=== PATIENT | male | born 1955 | race Caucasian/White ===

== ENCOUNTER 2016-08-23 21:18 | Inpatient (IN) | payer MEDICARE, OTHER ==
[~2016-08-23] VITALS: Ht 167.6 cm; Wt 110.0 kg
[~2016-08-23 21:18] MED LIST: ATEN1TAB73 PO; CEPH500C3 PO; DEPA500T3 PO; LEXA20TA PO; LISI-357 PO; NOVOLOGMXP SQ; NRSS SC; PRAV40TA2 PO; SERO300T2 PO
[2016-08-23 21:23] VITALS: BP 123/73; PULSE 88; RESP 20; O2SAT 98
[2016-08-23 21:31] VITALS: O2SAT 99
--- NOTE | 2016-08-23 22:43 | RADRPT ---
EXAM DATE/TIME: 08/23/2016 21:50 [facility] COMPARISON: No previous studies available for comparison. INDICATIONS : Short of Breath. MEDICAL HISTORY : None. SURGICAL HISTORY : None. ENCOUNTER: Initial ACUITY: 1 day PAIN SCORE: 0/10 LOCATION: Bilateral chest FINDINGS: A single view of the chest demonstrates the lungs to be symmetrically aerated without evidence of mas s, infiltrate or effusion. The cardiomediastinal contours are unremarkable. Osseous structures are intact. CONCLUSION: No evidence of acute cardiopulmonary disease. Des Oviedo MD on August 23, 2016 at 22:41 Board Certified Radiologist. This report was verified electronically.
--- NOTE | 2016-08-23 22:58 | RADRPT ---
EXAM DATE/TIME: 08/23/2016 22:37 [facility] COMPARISON: No previous studies available for comparison. INDICATIONS : Altered mental status. RADIATION DOSE: 56.35 CTDIvol (mGy) MEDICAL HISTORY : Non-responsive. SURGICAL HISTORY : Non-responsive. ENCOUNTER: Initial ACUITY: 1 day PAIN SCALE: Non-responsive LOCATION: cranial TECHNIQUE: Multiple contiguous axial images were obtained of the head. Using automated exposure control and adj ustment of the mA and/or kV according to patient size, radiation dose was kept as low as reasonably a chievable to obtain optimal diagnostic quality images. FINDINGS: CEREBRUM: The ventricles are normal for age. No evidence of midline shift, mass lesion, hemorrhage or acute in farction. No extra-axial fluid collections are seen. POSTERIOR FOSSA: The cerebellum and brainstem are intact. The 4th ventricle is midline. The cerebellopontine angle i s unremarkable. EXTRACRANIAL: There is a 2 cm mucous retention cyst of the right maxillary air cell. SKULL: The calvaria is intact. No evidence of skull fracture. CONCLUSION: No bleed or other acute intracranial abnormality. Right maxillary mucus retention cyst. Des Oviedo MD on August 23, 2016 at 22:54 Board Certified Radiologist. This report was verified electronically.
[2016-08-23 23:01] LABS: AUTOMATED NEUTROPHIL # 10.5 TH/MM3 (1.8-7.7); BASOPHIL # 0.1 TH/MM3 (0-0.2); BASOPHIL % 0.4 % (0.0-2.0); EOSINOPHIL # 0.4 TH/MM3 (0-0.4); EOSINOPHIL % 3.3 % (0.0-4.0); HEMATOCRIT 30.1 % (39.0-51.0); HEMO FLAGS DIFF FINAL; LYMPH % 8.1 % (9.0-44.0); LYMPHOCYTE # 1.1 TH/MM3 (1.0-4.8); MEAN CELL VOLUME 84.9 FL (80.0-100.0); MEAN CORPUSCULAR HEMOGLOBIN 28.6 PG (27.0-34.0); MEAN CORPUSCULAR HGB CONC 33.7 % (32.0-36.0); MONO % 10.4 % (0.0-8.0); NEUT % 77.8 % (16.0-70.0); PLATELET COUNT 255 TH/MM3 (150-450); RED BLOOD COUNT 3.54 MIL/MM3 (4.50-5.90); RED CELL DISTRIBUTION WIDTH 14.3 % (11.6-17.2); WHITE BLOOD COUNT 13.5 TH/MM3 (4.0-11.0)
[2016-08-23 23:12] LABS: ANION GAP 7 MEQ/L (5-15); AST (GOT) 41 U/L (15-37); BICARBONATE 24.8 MEQ/L (21.0-32.0); BLOOD UREA NITROGEN 71 MG/DL (7-18); CHLORIDE 101 MEQ/L (98-107); GLOMERULAR FILTRATION RATE 21 ML/MIN (>89); MAGNESIUM 1.6 MG/DL (1.5-2.5); POTASSIUM 5.5 MEQ/L (3.5-5.1); SODIUM (NA) 133 MEQ/L (136-145)
[2016-08-23 23:17] LABS: ALKALINE PHOSPHATASE 137 U/L (45-117); ALT (GPT) 88 U/L (12-78); TOTAL BILIRUBIN ADULT 0.3 MG/DL (0.2-1.0)
[2016-08-23] MEDS ORDERED: DEPA500T3 PO (23:26)
[2016-08-23] MEDS ORDERED: NOVOLOGMXP SQ (23:26)
[2016-08-23] MEDS ORDERED: PRAV40TA2 PO (23:26)
[2016-08-23] MEDS ORDERED: LISI-519 PO (23:26)
[2016-08-23] MEDS ORDERED: SERO300T PO (23:26)
[2016-08-23] MEDS ORDERED: ATEN1TAB73 PO (23:26)
[2016-08-23] MEDS ORDERED: NOVORP2 SQ (23:26)
[2016-08-23] MEDS ORDERED: LEXA20TA PO (23:26)
[2016-08-24] VITALS (9 sets, daily range): BP systolic 95–177; BP diastolic 52–100; PULSE 82–108; RESP 14–20; TEMP 96.3–98.8; O2SAT 93–99
[2016-08-24] MEDS ORDERED: SODIUM POLYSTYRENE SULFONATE 30 GM/120 ML ENEMA RECTAL ONE (00:30)
[2016-08-24] MEDS ORDERED: CALCIUM GLUCONATE 10% 1 GM/10 ML VIAL SLOW IVP ONE (00:30)
[2016-08-24] MEDS ORDERED: SODIUM CHLOR 0.9% 1000 ML INJ 1,000 ML IV ONE ×2 (00:30→00:45)
[2016-08-24] MEDS ORDERED: SODIUM POLYSTYRENE SULFONATE SUSP 15 GM/60 ML CUP PO ONE ×2 (00:30→18:45)
--- NOTE | 2016-08-24 00:38 | PD ---
HPI Chief Complaint: Fall Time Seen by Provider: 21:28 Travel History International Travel<30 days: No Contact w/Intl Traveler<30days: No Traveled to known affect area: No History of Present Illness HPI 61-year-old male came to the emergency room with history of fall and altered mental status. The fall was witnessed by a neighbor when he fell from his motorized chair. They told the paramedics that he just slumped over from the chair and fell on the ground. He appeared lethargic. As per EMS en route patient continued to be a little lethargic but mental status improved however. His blood sugar was 190 as per the core worker. Patient seemed a little lethargic upon arrival but answering questions appropriately. He is fully oriented. He was complaining of left thigh pain but also said that he has had this pain for a very long time. No history of chest pain or head injury. Patient also said that he took a Seroquel which is his prescription medication just before this happened. Patient is a diabetic. [facility] Past Medical History Narrative Medical List of his past medical history as reviewed from the nursing note. Bipolar Disorder: Yes Anxiety: No Depression: Yes High Cholesterol: Yes Coronary Artery Disease: Yes Diabetes: Yes Patient Takes Glucophage: Yes Diminished Hearing: No Hypertension: Yes Psychiatric: Yes Reproductive: Yes (ENLARGED PROSTATE) ?: Not Past Surgical History Eye Surgery: Yes (Tightened muscles on eye) Oral Surgery: Yes (teeth extracted) Other Surgery: Yes (4 yrs old hernia) Social History Alcohol Use: No Tobacco Use: Yes (2PPD) Substance Use: No Allergies-Medications (Allergen,Severity, Reaction): Coded Allergies: [place] (Verified Allergy, Severe, 08/23/16) Per patient, he is unable to ever take [place] ever again. Makes him very very ill. Comments List of his allergies reviewed from the nursing note. Reported Meds & Prescriptions Reported Meds & Active Scripts Active Reported Vesicare (Solifenacin) 5 Mg Tab 5 Mg PO DAILY Simvastatin 20 Mg Tab 20 Mg PO HS Seroquel (Quetiapine Fumarate) 300 Mg Tab 300 Mg PO HS Lisinopril 2.5 Mg Tab 2.5 Mg PO DAILY Levemir Inj (Insulin Detemir) 1,000 unit/ 10 ML Vial 12 Units SQ BID Do not mix with any other Insulin. Lamictal (Lamotrigine) 25 Mg Tab 25 Mg PO BID Doxazosin (Doxazosin Mesylate) 2 Mg Tab 2 Mg PO DAILY Vitamin D3 (Cholecalciferol) 2,000 Unit Chew 2,000 Units CHEW DAILY Aspirin 81 Mg Chew 81 Mg CHEW DAILY [place] Allergy (Fexofenadine HCl) 180 Mg Tab 180 Mg PO DAILY Actos (Pioglitazone HCl) 15 Mg Tab 15 Mg PO DAILY Novolog Mix 70-30 Inj (Insulin Aspart Prota 70%/Aspart 30%) 1,000 Unit/10 Ml Vial 1 Units SQ Novolin R Inj (Insulin Human Regular) 1,000 Unit/10 Ml Vial 0 SQ DIRECTED Sliding Scale As Directed. Narrative Medication List of his home medications reviewed from the nursing note. Review of Systems Except as stated in HPI: all other systems reviewed are Neg Physical Exam Narrative GENERAL: Lethargic, obese, looks older than his age, moderate distress, answering questions appropriately SKIN: Warm and dry. HEAD: Atraumatic. Normocephalic. EYES: Pupils equal and round. No scleral icterus. No injection or drainage. ENT: No nasal bleeding or discharge. Dry mucous membrane NECK: Trachea midline. No JVD. CARDIOVASCULAR: Regular rate and rhythm. No murmur appreciated. RESPIRATORY: No accessory muscle use. Clear to auscultation. Breath sounds equal bilaterally. GASTROINTESTINAL: Abdomen soft, non-tender, nondistended. Hepatic and splenic margins not palpable. MUSCULOSKELETAL: No obvious deformities. No clubbing. No cyanosis. No edema. NEUROLOGICAL: Awake and alert. No obvious cranial nerve deficits. Motor grossly within normal limits. Slurred speech. PSYCHIATRIC: Appropriate mood and affect; insight and judgment normal. Data Data Last Documented VS Vital Signs Date Time Temp Pulse Resp B/P Pulse Ox O2 Delivery O2 Flow Rate FiO2 08/24/16 00:59 96 20 128/72 94 Room Air 3 Orders Complete Blood Count With Diff (08/23/16 21:28) Comprehensive Metabolic Panel (08/23/16 21:28) Lactic Acid Sepsis Protocol (08/23/16 21:28) Magnesium (Mg) (08/23/16 21:28) Troponin I (08/23/16 21:28) Urinalysis - C+S If Indicated (08/23/16 21:28) Blood Culture (08/23/16 21:28) Chest, Single Ap (08/23/16 21:28) Blood Glucose (08/23/16 21:28) Ecg Monitoring (08/23/16 21:28) Iv Access Insert/Monitor (08/23/16 21:28) Oximetry (08/23/16 21:28) Oxygen Administration (08/23/16 21:28) Ct Brain W/O Iv Contrast(Rout) (08/23/16 21:28) Electrocardiogram (08/23/16 ) Sodium Chlor 0.9% 1000 Ml Inj (Ns 1000 M (08/24/16 00:30) Creatine Kinase (Cpk) (08/24/16 00:22) Femur (Ap & Lat/2vws) (08/24/16 ) Calcium Gluconate Inj (Calcium Gluconate (08/24/16 00:30) Sodium Polysty Sulfate Liq (Kayexalate L (08/24/16 00:30) Urinary Catheter Insert/Apply (08/24/16 00:27) Sod Polystyrene Sulfate Enema (Kayexalat (08/24/16 00:30) Piperacil-Tazo 4.5 Gm Premix (Zosyn 4.5 (08/24/16 00:45) Vancomycin Inj (Vancomycin Inj) (08/24/16 00:45) Sodium Chlor 0.9% 1000 Ml Inj (Ns 1000 M (08/24/16 00:45) Admit Order (Ed Use Only) (08/24/16 01:07) Labs Laboratory Tests Test 08/23/16 22:35 Sodium Level 133 MEQ/L Potassium Level 5.5 MEQ/L Chloride Level 101 MEQ/L Carbon Dioxide Level 24.8 MEQ/L Anion Gap 7 MEQ/L Blood Urea Nitrogen 71 MG/DL Creatinine 3.08 MG/DL Estimat Glomerular Filtration 21 ML/MIN Rate Random Glucose 201 MG/DL Lactic Acid Level 0.7 mmol/L Calcium Level 8.3 MG/DL Magnesium Level 1.6 MG/DL Total Bilirubin 0.3 MG/DL Aspartate Amino Transf 41 U/L (AST/SGOT) Alanine Aminotransferase 88 U/L (ALT/SGPT) Alkaline Phosphatase 137 U/L Troponin I LESS THAN 0.02 NG/ML Total Protein 6.9 GM/DL Albumin 1.9 GM/DL White Blood Count 13.5 TH/MM3 Red Blood Count 3.54 MIL/MM3 Hemoglobin 10.1 GM/DL Hematocrit 30.1 % Mean Corpuscular Volume 84.9 FL Mean Corpuscular Hemoglobin 28.6 PG Mean Corpuscular Hemoglobin 33.7 % Concent Red Cell Distribution Width 14.3 % Platelet Count 255 TH/MM3 Mean Platelet Volume 7.7 FL Neutrophils (%) (Auto) 77.8 % Lymphocytes (%) (Auto) 8.1 % Monocytes (%) (Auto) 10.4 % Eosinophils (%) (Auto) 3.3 % Basophils (%) (Auto) 0.4 % Neutrophils # (Auto) 10.5 TH/MM3 Lymphocytes # (Auto) 1.1 TH/MM3 Monocytes # (Auto) 1.4 TH/MM3 Eosinophils # (Auto) 0.4 TH/MM3 Basophils # (Auto) 0.1 TH/MM3 CBC Comment DIFF FINAL Differential Comment Total Creatine Kinase 218 U/L MDM Medical Decision Making Medical Screen Exam Complete: Yes Emergency Medical Condition: Yes Medical Record Reviewed: Yes Interpretation(s) Twelve-lead EKG was reviewed by me. Normal sinus rhythm, normal axis, nonspecific ST-T wave changes. Heart rate of 98 bpm. Differential Diagnosis Sepsis, electrolyte abnormalities, intracranial bleed, CVA, UTI Narrative Course 12:34 AM blood test results of back and shows acute renal failure. CAT scan of the head is negative and chest x-ray is within normal limits. I went and reassessed the patient and he is sleeping and stirs a little when I tried to wake him up. I've ordered a Bhatia catheter and a second liter of IV fluid bolus. His potassium was 5.5 which is high especially given the fact that he is in acute renal failure. I have ordered calcium gluconate and Kayexalate enema. Patient will need to be admitted. Awaiting for the hospitalist to call back. UA still pending. I added a CPK. Patient has leukocytosis. I have ordered antibiotics for him for possible sepsis. Patient is rectal temp was 99.9. Critical Care Narrative Aggregate critical care time was 45 minutes. Time to perform other separately billable procedures was not included in the critical care time. My time did not include minutes spent treating any other patients simultaneously or on activities that did not directly contribute to the patient's treatment. The services I provided to this patient were to treat and/or prevent clinically significant deterioration that could result in: Altered mental status, acute renal failure and dehydration, hyperkalemia I provided critical care services requiring my management, as noted below: Chart data review, documentation time, medication orders and management, vital sign assessments/reviewing monitor data, ordering and reviewing lab tests, ordering and interpreting/reviewing x-rays and diagnostic studies, care of the patient and discussion of the patient with the admitting physicians. Procedures EKG Prior to Arrival: No Diagnosis Primary Impression: Altered mental status Qualified Code: R40.0 - Somnolence Additional Impressions: Acute renal failure Qualified Code: N17.9 - Acute renal failure, unspecified acute renal failure type Dehydration Syncope Qualified Code: R55 - Syncope, unspecified syncope type Hyperkalemia Sepsis Admitting Information Admitting Physician Requests: Admit Scripts Amoxicillin-Clavulanate 875-125 mg [id number] Mg PO Q12HR #10 TAB Prov:Yamilet Smart MD 08/26/16 Haydee Stewart MD Aug 24, 2016 00:38
[2016-08-24] MEDS ORDERED: VANCOMYCIN INJ 1,000 MG in SODIUM CHLOR 0.9% 250 ML INJ 250 ML IV ONE (00:45)
[2016-08-24] MEDS ORDERED: PIPERACIL-TAZO 4.5 GM PREMIX 100 ML IV ONE (00:45)
--- NOTE | 2016-08-24 01:21 | RADRPT ---
EXAM DATE/TIME: 08/24/2016 00:44 [facility] COMPARISON: No previous studies available for comparison. INDICATIONS : Left upper leg pain. MEDICAL HISTORY : None. SURGICAL HISTORY : None. ENCOUNTER: Initial ACUITY: 1 day PAIN SCORE: Non-responsive. LOCATION: Left Femur FINDINGS: 4 views of the left femur demonstrate no fracture or dislocation. Mineralization is within normal bansal its. There is severe superior joint space narrowing at the hip joint with subchondral sclerosis and o steophytosis on the femoral head and acetabulum. No soft tissue abnormality or radiopaque foreign bod y is identified. CONCLUSION: No acute left femur abnormality is identified. There is severe left hip joint osteoarthritis. Des Heard MD on August 24, 2016 at 1:18 Board Certified Radiologist. This report was verified electronically.
[2016-08-24] MEDS: SODIUM CHLOR 0.9% 1000 ML INJ 1,000 ML IV SCH ×2 (01:32→20:06)
[2016-08-24] MEDS ORDERED: SODIUM CHLORIDE 0.9% FLUSH 5 ML FLUSH FLUSH PRN (01:45)
[2016-08-24] MEDS ORDERED: Vancomycin Consult Pharmacy 1 EA OTHER SCH (01:45)
[2016-08-24] MEDS ORDERED: ONDANSETRON HCL 4 MG/2 ML VIAL IVP PRN (01:45)
[2016-08-24] MEDS ORDERED: BISACODYL 10 MG SUPP PR PRN (01:45)
[2016-08-24] MEDS ORDERED: ACETAMINOPHEN 325 MG TAB PO PRN (01:45)
[2016-08-24 02:23] LABS: AMPHETAMINE, URINE NEG (NEG); BARBITURATES, URINE NEG (NEG); COCAINE, URINE NEG (NEG)
[2016-08-24 02:24] LABS: BACTERIA, URINE RARE /hpf; BLOOD, URINE TRACE (NEG); COMMENT (UR) CATH-CULTURE IND; CULTURE IF INDICATED CATH CULTURE IND; GLUCOSE,URINE NEG (NEG); KETONE, URINE NEG (NEG); NITRITE,URINE NEG (NEG); RENAL EPITHELIAL CELLS <1 /hpf; SQUAMOUS EPITHELIAL CELL URINE 1 /hpf (0-5); URINE COLOR YELLOW (YELLW/STRAW)
--- NOTE | 2016-08-24 03:28 | HHI.HP ---
[facility] Admission Diagnosis altered mental status, sepsis, acute renal failure Diagnoses: (1) Sepsis Diagnosis: Principal (2) UTI (urinary tract infection) Diagnosis: Principal (3) Encephalopathy Diagnosis: Principal (4) YISEL (acute kidney injury) Diagnosis: Principal (5) Hyperkalemia Diagnosis: Principal Travel History International Travel<30 Days: No Contact w/Intl Traveler <30 Da: No Traveled to Known Affected Are: No History of Present Illness This is a 61-year-old male with PMH of HTN, CAD, DM and Bipolar Disorder was brought to the ER by EMS for altered mental status after fall. Per report, patient had witnessed fall from motorized scooter at [facility], no reported LOC or seizure activity. Upon EMS arrival, patient was noted to be lethargic, BS 189, some improvement in mentation at which time pt reported he had taken Seroquel prior to fall. Denies fever, chills, chest pain or SOB. Pt remains somewhat lethargic, but answering questions. On arrival, BP 123/73, HR 88, O2 sat 98% on RA, Afebrile. Creatinine 3.08, previously 0.70 on 07/09/13. K+ 5.5 s/p Insulin/D50 and Kayexalate in ER. U/a positive for UTI. S/p Blood Cultures , Vanc/Zosyn in ER. Review of Systems Other ROS: 14 point review of systems otherwise negative. Past Family Social History Past Medical History PMH: HTN, CAD, DM and Bipolar Disorder Past Surgical History PAST SURGICAL HISTORY: Dental Extraction, Hernia Repair Allergies: Coded Allergies: [place] (Verified Allergy, Severe, 08/23/16) Per patient, he is unable to ever take [place] ever again. Makes him very very ill. Family History PAST FAMILY HISTORY: Reviewed. No h/o DM or CAD Social History PAST SOCIAL HISTORY: Negative for alcohol or drugs. Positive for tobacco abuse. Physical Exam Vital Signs Vital Signs Date Time Temp Pulse Resp B/P Pulse Ox O2 Delivery O2 Flow Rate FiO2 08/24/16 00:59 96 20 128/72 94 Room Air 3 08/24/16 00:13 95 18 95/52 99 Room Air 08/23/16 21:31 99 08/23/16 21:31 98 08/23/16 21:23 88 20 123/73 98 Physical Exam PE: GENERAL: Middle-aged male in no acute distress. HEENT: PERRLA, EOMI. No scleral icterus or conjunctival pallor. No lid lag or facial droop. CARDIOVASCULAR: Regular rate and rhythm. No obvious murmurs to auscultation. No chest tenderness to palpation. RESPIRATORY: No obvious rhonchi or wheezing. Clear to auscultation. Breath sounds equal bilaterally. GASTROINTESTINAL: Abdomen soft, non-tender, nondistended. BS normal. MUSCULOSKELETAL: Extremities without clubbing, cyanosis, or edema. No obvious deformities. NEUROLOGICAL: Awake, alert, answering questions. No focal neurologic deficits. Moving both upper and lower extremities spontaneously. Laboratory Laboratory Tests Test 08/23/16 08/24/16 22:35 01:45 Sodium Level 133 Potassium Level 5.5 Chloride Level 101 Carbon Dioxide Level 24.8 Anion Gap 7 Blood Urea Nitrogen 71 Creatinine 3.08 Estimat Glomerular Filtration 21 Rate Random Glucose 201 Lactic Acid Level 0.7 Calcium Level 8.3 Magnesium Level 1.6 Total Bilirubin 0.3 Aspartate Amino Transf 41 (AST/SGOT) Alanine Aminotransferase 88 (ALT/SGPT) Alkaline Phosphatase 137 Troponin I LESS THAN 0.02 Total Protein 6.9 Albumin 1.9 White Blood Count 13.5 Red Blood Count 3.54 Hemoglobin 10.1 Hematocrit 30.1 Mean Corpuscular Volume 84.9 Mean Corpuscular Hemoglobin 28.6 Mean Corpuscular Hemoglobin 33.7 Concent Red Cell Distribution Width 14.3 Platelet Count 255 Mean Platelet Volume 7.7 Neutrophils (%) (Auto) 77.8 Lymphocytes (%) (Auto) 8.1 Monocytes (%) (Auto) 10.4 Eosinophils (%) (Auto) 3.3 Basophils (%) (Auto) 0.4 Neutrophils # (Auto) 10.5 Lymphocytes # (Auto) 1.1 Monocytes # (Auto) 1.4 Eosinophils # (Auto) 0.4 Basophils # (Auto) 0.1 CBC Comment DIFF FINAL Differential Comment Total Creatine Kinase 218 Urine Color YELLOW Urine Turbidity HAZY Urine pH 6.0 Urine Specific [place] 1.009 Urine Protein TRACE Urine Glucose (UA) NEG Urine Ketones NEG Urine Occult Blood TRACE Urine Nitrite NEG Urine Bilirubin NEG Urine Urobilinogen 2.0 Urine Leukocyte Esterase LARGE Urine RBC 9 Urine WBC 154 Urine WBC [place] FEW Urine Squamous Epithelial 1 Cells Urine Renal Epithelial Cells <1 Urine Amorphous Sediment RARE Urine Bacteria RARE Urine Yeast (Budding) FEW Microscopic Urinalysis Comment CATH-CULTURE IND Urine Random Creatinine 43 Urine Random Total Protein 31 Urine Protein/Creatinine Ratio 0.72 Urine Opiates Screen NEG Urine Barbiturates Screen NEG Urine Amphetamines Screen NEG Urine Benzodiazepines Screen NEG Urine Cocaine Screen NEG Urine Cannabinoids Screen NEG Date/Time Procedure Status Source Growth 08/24/16 01:45 Urine Culture Received Urine Catheterized Urine Pending 08/23/16 22:35 Aerobic Blood Culture Received Blood Peripheral Pending 08/23/16 22:35 Anaerobic Blood Culture Received Blood Peripheral Pending Result Diagram: 08/23/16223408/23/162234 Assessment and Plan Problem List: (1) Sepsis ICD Code: A41.9 Status: Acute (2) UTI (urinary tract infection) ICD Code: N39.0 Status: Acute (3) Encephalopathy ICD Code: G93.40 Status: Acute (4) YISEL (acute kidney injury) ICD Code: N17.9 Status: Acute (5) Hyperkalemia ICD Code: E87.5 Status: Acute Assessment and Plan A/P: 1. Sepsis: HR 95, WBC 13.5, Source-UTI. S/p Blood Cultures, Vanc/Zosyn in ER. Follow up cultures, continue w/ IV Abx, IVF. 2. UTI: U/a w/ significant UTI, continue w/ IV Abx as above. 3. YISEL: Creatinine 3.08, previously 0.70 on 10/07/12, likely secondary to dehydration from UTI. IVF, check Renal US, prot/creat ratio 4. Hyperkalemia: K+ 5.5, s/p Insulin/D50, Kayexalate in ER. Repeat in am. Place on telemetry. 5. Tobacco Abuse: NicoDerm prn if needed. 6. DVT Prophylaxis: SCD/Teds. 7. Social work for d/c planning as needed. 8. Case discussed w/ ER physician at length. Physician Certification 2 Midnight Certification Type: Admission for Inpatient Services Order for Inpatient Services The services are ordered in accordance with Medicare regulations or non- Medicare payer requirements, as applicable. In the case of services not specified as inpatient-only, they are appropriately provided as inpatient services in accordance with the 2-midnight benchmark. Estimated LOS (days): 2 days is the estimated time the patient will need to remain in the hospital, assuming treatment plan goals are met and no additional complications. Post-Hospital Plan: Not yet determined Estelle Stewart MD Aug 24, 2016 03:27
[2016-08-24 05:55] LABS: AUTOMATED NEUTROPHIL # 9.5 TH/MM3 (1.8-7.7); BASOPHIL # 0.1 TH/MM3 (0-0.2); BASOPHIL % 0.6 % (0.0-2.0); EOSINOPHIL # 0.5 TH/MM3 (0-0.4); EOSINOPHIL % 4.1 % (0.0-4.0); HEMATOCRIT 33.6 % (39.0-51.0); HEMO FLAGS DIFF FINAL; LYMPH % 9.7 % (9.0-44.0); LYMPHOCYTE # 1.2 TH/MM3 (1.0-4.8); MEAN CELL VOLUME 86.3 FL (80.0-100.0); MEAN CORPUSCULAR HEMOGLOBIN 28.6 PG (27.0-34.0); MEAN CORPUSCULAR HGB CONC 33.2 % (32.0-36.0); NEUT % 74.6 % (16.0-70.0); PLATELET COUNT 238 TH/MM3 (150-450); RED BLOOD COUNT 3.89 MIL/MM3 (4.50-5.90); RED CELL DISTRIBUTION WIDTH 14.4 % (11.6-17.2); WHITE BLOOD COUNT 12.7 TH/MM3 (4.0-11.0)
[2016-08-24 06:29] LABS: ALKALINE PHOSPHATASE 145 U/L (45-117); ALT (GPT) 83 U/L (12-78); ANION GAP 9 MEQ/L (5-15); AST (GOT) 32 U/L (15-37); BICARBONATE 20.4 MEQ/L (21.0-32.0); BLOOD UREA NITROGEN 67 MG/DL (7-18); CHLORIDE 106 MEQ/L (98-107); GLOMERULAR FILTRATION RATE 21 ML/MIN (>89); POTASSIUM 5.7 MEQ/L (3.5-5.1); SODIUM (NA) 135 MEQ/L (136-145); TOTAL BILIRUBIN ADULT 0.3 MG/DL (0.2-1.0)
[2016-08-24] MEDS: PIPERACIL-TAZO 2.25 GM PREMIX 50 ML IV SCH ×2 (08:02→20:06)
[2016-08-24] MEDS: SODIUM CHLORIDE 0.9% FLUSH 5 ML FLUSH FLUSH SCH ×2 (09:00→20:05)
--- NOTE | 2016-08-24 10:53 | HHI.PR ---
Subjective Remarks Follow-up for acute renal failure Patient now more lucid, he remembers falling when he was at [facility]. Now oriented. Patient denies any dysuria or urgency but actually has not been urinating a lot in the last 4 days. Complaining of mild abdominal discomfort. No nausea, vomiting, fever, chills, cough, diarrhea. Oral intake has been normal. Objective Vitals Vital Signs Date Time Temp Pulse Resp B/P Pulse Ox O2 Delivery O2 Flow Rate FiO2 08/24/16 08:00 97.9 99 14 157/100 93 Room Air 08/24/16 05:11 90 18 135/63 99 Nasal Cannula 2 08/24/16 04:13 99 18 137/71 99 Room Air 08/24/16 03:31 82 18 138/78 98 Nasal Cannula 3 08/24/16 00:59 96 20 128/72 94 Room Air 3 08/24/16 00:13 95 18 95/52 99 Room Air 08/23/16 21:31 99 08/23/16 21:31 98 08/23/16 21:23 88 20 123/73 98 Result Diagram: 08/24/16 0520 08/24/16 0520 Objective Remarks GENERAL: Middle-aged male in no acute distress. HEENT: PERRLA, EOMI. No scleral icterus or conjunctival pallor. No lid lag or facial droop. CARDIOVASCULAR: Regular rate and rhythm. No obvious murmurs to auscultation. No chest tenderness to palpation. RESPIRATORY: No obvious rhonchi or wheezing. Clear to auscultation. Breath sounds equal bilaterally. GASTROINTESTINAL: Abdomen soft, non-tender, mildly distended, palpable bladder or mass. MUSCULOSKELETAL: Extremities without clubbing, cyanosis, or edema. No obvious deformities. NEUROLOGICAL: Awake, alert, answering questions. No focal neurologic deficits. Moving both upper and lower extremities spontaneously. A/P Problem List: (1) Sepsis ICD Code: A41.9 Status: Acute (2) UTI (urinary tract infection) ICD Code: N39.0 Status: Acute (3) Encephalopathy ICD Code: G93.40 Status: Acute (4) YISEL (acute kidney injury) ICD Code: N17.9 Status: Acute (5) Hyperkalemia ICD Code: E87.5 Status: Acute Assessment and Plan This is a 61-year-old male presenting with altered mental status and a fall Sepsis secondary to urinary tract infection-patient has leukocytosis, tachycardia, known source of infection. Follow-up urine culture, follow blood culture results. Continue Zosyn, stop vancomycin. Continue IVF Acute renal failure likely postobstructive-creatinine is normal in 2012, per patient, as far as he knows, his kidneys are normal. Pending renal ultrasound, however seen preliminary prelimary sonogram at bedside, patient is a very distended bladder, insert Bhatia catheter, consult urology. Will likely need a urostomy versus cystoscopy. Hyperkalemia-insert Bhatia catheter, continue IVF, increase rate once Bhatia catheter inserted. Status post insulin/D50, status post Kayexalate, recheck BMP today. Tobacco abuse-nicotine patch, consult DVT prophylaxis: Yamilet Ruiz MD Aug 24, 2016 10:52
--- NOTE | 2016-08-24 11:10 | RADRPT ---
EXAM DATE/TIME: 08/24/2016 10:00 [facility] COMPARISON: No previous studies available for comparison. INDICATIONS : Increased BUN and creatinine. MEDICAL HISTORY : Hypercholesterolemia. Hypertension. Coronary artery disease. Enlarged prostate. Diabetes. Bipolar. Sepsis. Encephalopathy. Acute kidney injury. SURGICAL HISTORY : None. ENCOUNTER: Initial ACUITY: 1 day PAIN SCORE: 3/10 LOCATION: Bilateral flank MEASUREMENTS: RIGHT KIDNEY: 15.4 x 6.5 x 7.3 cm LEFT KIDNEY: 15.9 x 6.1 x 7.6 cm FINDINGS: RIGHT KIDNEY: Mild right hydronephrosis. No evidence of mass. LEFT KIDNEY: Mild left hydronephrosis. No evidence of mass. BLADDER: Markedly distended urinary bladder. CONCLUSION: Markedly distended bladder and mild bilateral hydronephrosis. Mainor Arroyo MD on August 24, 2016 at 11:07 Board Certified Radiologist. This report was verified electronically.
--- NOTE | 2016-08-24 13:05 | PD.CONS ---
[facility] Service Urology Consult Requested By Reason for Consult Mild bilateral hydronephrosis Primary [facility] Physician [facility] Diagnosis: (1) Sepsis ICD Code: A41.9 (2) UTI (urinary tract infection) ICD Code: N39.0 (3) Encephalopathy ICD Code: G93.40 (4) YISEL (acute kidney injury) ICD Code: N17.9 (5) Hyperkalemia ICD Code: E87.5 History of Present Illness 61-year-old with multiple medical problems who was admitted for evaluation of altered mental status after a fall. During present hospitalization a renal ultrasound study was performed that demonstrated mild bilateral hydronephrosis and a markedly distended urinary bladder. Laboratory studies demonstrated elevation of the serum creatinine measuring 3.08. A urology consult was placed to address these issues. At the time of consultation the patient denied any complaints. Apparently he has been having frequency of urination. He denied dysuria or gross hematuria. Placement of a Bhatia catheter was ordered but had not been performed as of the time of this consultation. Review of Systems ROS Limitations: Poor Historian Past Family Social History Past Medical History Hypertension Coronary artery disease Diabetes mellitus Bipolar disorder Past Surgical History Status post herniorrhaphy Reported Medications Refer to EMR Allergies: Coded Allergies: Macy (Verified Allergy, Severe, 08/23/16) Per patient, he is unable to ever take Macy ever again. Makes him very very ill. Active Ordered Medications Refer to EMR Family History Reviewed and noncontributory Social History Tobacco user Denies alcohol or I V drug abuse Physical Exam Vital Signs Vital Signs Date Time Temp Pulse Resp B/P Pulse Ox O2 Delivery O2 Flow Rate FiO2 08/24/16 08:00 97.9 99 14 157/100 93 Room Air 08/24/16 05:11 90 18 135/63 99 Nasal Cannula 2 08/24/16 04:13 99 18 137/71 99 Room Air 08/24/16 03:31 82 18 138/78 98 Nasal Cannula 3 08/24/16 00:59 96 20 128/72 94 Room Air 3 08/24/16 00:13 95 18 95/52 99 Room Air 08/23/16 21:31 99 08/23/16 21:31 98 08/23/16 21:23 88 20 123/73 98 Physical Exam GENERAL: This is a well-nourished, well-developed patient, in no apparent distress. SKIN: No rashes, ecchymoses or lesions. Cool and dry. HEAD: Atraumatic. Normocephalic. No temporal or scalp tenderness. EYES: Pupils equal round and reactive. Extraocular motions intact. No scleral icterus. No injection or drainage. ENT: Nose without bleeding, purulent drainage or septal hematoma. Throat without erythema, tonsillar hypertrophy or exudate. Uvula midline. Airway patent. NECK: Trachea midline. No JVD or lymphadenopathy. Supple, nontender, no meningeal signs. GASTROINTESTINAL: Abdomen soft, non-tender. No guarding. : Bladder markedly distended. MUSCULOSKELETAL: Extremities without clubbing, cyanosis, or edema. No joint tenderness, effusion, or edema noted. No calf tenderness. Negative Homans sign bilaterally. NEUROLOGICAL: Awake and alert. Cranial nerves II through XII intact. Motor and sensory grossly within normal limits. Five out of 5 muscle strength in all muscle groups. Normal speech. Laboratory Laboratory Tests Test 08/23/16 08/24/16 08/24/16 22:35 01:45 05:20 Sodium Level 133 135 Potassium Level 5.5 5.7 Chloride Level 101 106 Carbon Dioxide Level 24.8 20.4 Anion Gap 7 9 Blood Urea Nitrogen 71 67 Creatinine 3.08 3.00 Estimat Glomerular Filtration 21 21 Rate Random Glucose 201 234 Lactic Acid Level 0.7 Calcium Level 8.3 8.4 Magnesium Level 1.6 Total Bilirubin 0.3 0.3 Aspartate Amino Transf 41 32 (AST/SGOT) Alanine Aminotransferase 88 83 (ALT/SGPT) Alkaline Phosphatase 137 145 Troponin I LESS THAN 0.02 Total Protein 6.9 6.7 Albumin 1.9 1.8 White Blood Count 13.5 12.7 Red Blood Count 3.54 3.89 Hemoglobin 10.1 11.1 Hematocrit 30.1 33.6 Mean Corpuscular Volume 84.9 86.3 Mean Corpuscular Hemoglobin 28.6 28.6 Mean Corpuscular Hemoglobin 33.7 33.2 Concent Red Cell Distribution Width 14.3 14.4 Platelet Count 255 238 Mean Platelet Volume 7.7 7.4 Neutrophils (%) (Auto) 77.8 74.6 Lymphocytes (%) (Auto) 8.1 9.7 Monocytes (%) (Auto) 10.4 11.0 Eosinophils (%) (Auto) 3.3 4.1 Basophils (%) (Auto) 0.4 0.6 Neutrophils # (Auto) 10.5 9.5 Lymphocytes # (Auto) 1.1 1.2 Monocytes # (Auto) 1.4 1.4 Eosinophils # (Auto) 0.4 0.5 Basophils # (Auto) 0.1 0.1 CBC Comment DIFF FINAL DIFF FINAL Differential Comment Total Creatine Kinase 218 Urine Color YELLOW Urine Turbidity HAZY Urine pH 6.0 Urine Specific [place] 1.009 Urine Protein TRACE Urine Glucose (UA) NEG Urine Ketones NEG Urine Occult Blood TRACE Urine Nitrite NEG Urine Bilirubin NEG Urine Urobilinogen 2.0 Urine Leukocyte Esterase LARGE Urine RBC 9 Urine WBC 154 Urine WBC Clumps FEW Urine Squamous Epithelial 1 Cells Urine Renal Epithelial Cells <1 Urine Amorphous Sediment RARE Urine Bacteria RARE Urine Yeast (Budding) FEW Microscopic Urinalysis Comment CATH-CULTURE IND Urine Random Creatinine 43 Urine Random Total Protein 31 Urine Protein/Creatinine Ratio 0.72 Urine Opiates Screen NEG Urine Barbiturates Screen NEG Urine Amphetamines Screen NEG Urine Benzodiazepines Screen NEG Urine Cocaine Screen NEG Urine Cannabinoids Screen NEG Date/Time Procedure Status Source Growth 08/24/16 01:45 Urine Culture Received Urine Catheterized Urine Pending 08/23/16 22:35 Aerobic Blood Culture - Preliminary Resulted Blood Peripheral NO GROWTH IN 1 DAY 08/23/16 22:35 Anaerobic Blood Culture - Preliminary Resulted Blood Peripheral NO GROWTH IN 1 DAY Result Diagram: 08/24/16 0520 08/24/16 0520 Imaging Renal ultrasound with findings as outlined above. Assessment and Plan Assessment and Plan Urologic impression: #1 mild bilateral hydronephrosis related to urinary retention. #2 will need to rule out bladder outlet obstruction versus neurogenic bladder dysfunction. Recommendations: #1 agree with placement of Bhatia catheter #2 patient should be managed with a Bhatia catheter until a full outpatient workup can be completed. #3 patient will require outpatient cystoscopy and possibly urodynamics. #4 please arrange follow up visit with me at my office after hospital discharge [phone]. Neymar Wahl MD Aug 24, 2016 13:05
--- NOTE | 2016-08-24 13:40 | EKG ---
Date Performed: 08/23/2016 Time Performed: 22:51:54 PTAGE: 61 years EKG: Sinus rhythm NORMAL ECG NO PREVIOUS TRACING DOCTOR: Crystal Alexander Interpretating Date/Time 08/24/2016 13:35:07
[2016-08-24 16:58] LABS: BICARBONATE 22.9 MEQ/L (21.0-32.0); POTASSIUM 5.7 MEQ/L (3.5-5.1)
[2016-08-24] MEDS ORDERED: SERO300T PO (18:32)
[2016-08-24] MEDS ORDERED: SIMV20TA PO (18:32)
[2016-08-24] MEDS ORDERED: ASPI81CH CHEW (18:32)
[2016-08-24] MEDS ORDERED: DOXA1TAB35 PO (18:32)
[2016-08-24] MEDS ORDERED: LISI2.5T3 PO (18:32)
[2016-08-24] MEDS ORDERED: FEXO15TA PO (18:32)
[2016-08-24] MEDS ORDERED: ACTO15TA11 PO (18:32)
[2016-08-24] MEDS ORDERED: LAMO25 PO (18:32)
[2016-08-24] MEDS ORDERED: CHOL1CHW5 CHEW (18:32)
[2016-08-24] MEDS ORDERED: LEVEMIR SQ (18:32)
[2016-08-24] MEDS ORDERED: VESI5TAB PO (18:32)
[2016-08-24] MEDS ORDERED: GLUCAGON 1 MG/ML VIAL OTHER PRN (18:45)
[2016-08-24] MEDS ORDERED: DEXTROSE 50% IN WATER 50 ML VIAL(D50) IV PUSH PRN (18:45)
[2016-08-24] MEDS: INSULIN ASPART SUPPLEMENTAL SCALE SQ SCH (20:15)
[2016-08-25] VITALS (8 sets, daily range): BP systolic 117–163; BP diastolic 65–87; PULSE 97–115; RESP 18–20; TEMP 96.1–98.2; O2SAT 92–98
[2016-08-25] MEDS: PIPERACIL-TAZO 2.25 GM PREMIX 50 ML IV SCH ×3 (00:29→13:01)
[2016-08-25] MEDS: diphenhydrAMINE HCL 25 MG CAP PO PRN ×2 (00:29→17:47)
[2016-08-25] MEDS: SODIUM CHLOR 0.9% 1000 ML INJ 1,000 ML IV SCH ×2 (03:06→17:48)
[2016-08-25] MEDS: INSULIN ASPART SUPPLEMENTAL SCALE SQ SCH ×4 (06:10→22:33)
[2016-08-25 09:45] LABS: AUTOMATED NEUTROPHIL # 11.5 TH/MM3 (1.8-7.7); BASOPHIL # 0.1 TH/MM3 (0-0.2); BASOPHIL % 0.9 % (0.0-2.0); EOSINOPHIL # 0.7 TH/MM3 (0-0.4); EOSINOPHIL % 4.7 % (0.0-4.0); HEMATOCRIT 32.7 % (39.0-51.0); HEMO FLAGS DIFF FINAL; LYMPHOCYTE # 1.5 TH/MM3 (1.0-4.8); MEAN CELL VOLUME 85.2 FL (80.0-100.0); MEAN CORPUSCULAR HEMOGLOBIN 28.1 PG (27.0-34.0); MEAN CORPUSCULAR HGB CONC 32.9 % (32.0-36.0); NEUT % 77.4 % (16.0-70.0); PLATELET COUNT 305 TH/MM3 (150-450); RED BLOOD COUNT 3.84 MIL/MM3 (4.50-5.90); RED CELL DISTRIBUTION WIDTH 14.5 % (11.6-17.2); WHITE BLOOD COUNT 14.8 TH/MM3 (4.0-11.0)
[2016-08-25 10:15] LABS: BICARBONATE 24.4 MEQ/L (21.0-32.0); POTASSIUM 5.2 MEQ/L (3.5-5.1)
[2016-08-25] MEDS: SODIUM CHLORIDE 0.9% FLUSH 5 ML FLUSH FLUSH SCH ×2 (13:40→21:00)
[2016-08-25] MEDS ORDERED: SODIUM POLYSTYRENE SULFONATE SUSP 15 GM/60 ML CUP PO ONE (14:00)
--- NOTE | 2016-08-25 14:02 | HHI.PR ---
Subjective Remarks Follow-up for renal failure Patient acting weird, start dysmetriain the room with his fecal matter. Patient refused to be seen in the very rude and angry. He is oriented to per RN. No overnight events. Still urinating well. Poor historian. Objective Vitals Vital Signs Date Time Temp Pulse Resp B/P Pulse Ox O2 Delivery O2 Flow Rate FiO2 08/25/16 12:00 98.2 115 20 126/86 98 08/25/16 08:00 98.0 106 18 134/80 97 08/25/16 04:00 96.1 103 19 128/66 93 08/25/16 00:41 101 08/25/16 00:00 97.1 109 19 117/65 92 08/24/16 20:00 98.8 108 20 136/93 94 08/24/16 16:00 96.9 90 16 177/89 93 I/O 08/24/16 08/24/16 08/24/16 08/25/16 08/25/16 08/25/16 07:00 15:00 23:00 07:00 15:00 23:00 Intake Total 480 ml 3200 ml Output Total 2750 ml 5175 ml Balance 480 ml -2750 ml -1975 ml Intake Oral 480 ml 1600 ml IV Total 1600 ml Output Urine Total 2750 ml 5175 ml # Voids 0 3 # Bowel Movements 1 2 Result Diagram: 08/25/16 0825 08/25/16 0825 Objective Remarks Vital signs stable Complete exam not done because patient is belligerent Urine output is good next time patient refused to be examined Obviously awake, alert, moves extremities. Mildly agitated, no apparent hallucinations. A/P Problem List: (1) Sepsis ICD Code: A41.9 Status: Acute (2) UTI (urinary tract infection) ICD Code: N39.0 Status: Acute (3) Encephalopathy ICD Code: G93.40 Status: Acute (4) YISEL (acute kidney injury) ICD Code: N17.9 Status: Acute (5) Hyperkalemia ICD Code: E87.5 Status: Acute Assessment and Plan This is a 61-year-old male presenting with altered mental status and a fall Sepsis secondary to urinary tract infection-patient has leukocytosis, tachycardia, known source of infection. Urine culture gram positive mixed leo. Start Augmentin. Blood cultures negative to date. Acute renal failure likely postobstructive-creatinine is normal in 2013, per patient, as far as he knows, his kidneys are normal. Ultrasound showed bilateral mild hydronephrosis and distended bladder. Urology was consulted, workup as outpatient. Continue Bhatia catheter. Creatinine better. Hyperkalemia- continue IVF, will give another dose of Kayexalate. Recheck BMP tomorrow. Diabetes mellitus-diabetic diet. Hemoglobin A1c is pending, continue sliding scale insulin. Delirium versus personality disorder-patient's major with fecal matter, now improved, wanting to go home. Patient still needs treatment,? Capacity. Consult psychiatry. Tobacco abuse-nicotine patch DVT prophylaxis: Yamilet Ruiz MD Aug 25, 2016 14:02
--- NOTE | 2016-08-25 18:05 | MB ---
cc: HENRIK RAMOS DATE OF CONSULTATION: 08/25/2016 HISTORY OF PRESENT ILLNESS This is a 61-year-old white male who was admitted with a history of hypertension, diabetes mellitus, he also has a history of bipolar disorder and has been seeing a psychiatrist once a month and taking Seroquel. He fell from a motorized scooter at a [employer], he did not lose his consciousness or had seizure activity. He is getting easily agitated, upset and wants to go home and I believe that he needs to be in the hospital for further observation and treatment. The patient has sepsis, UTI, encephalopathy, acute kidney injury, etc. I discussed the case with Dr. Smart and explained that in my opinion at the present time the way he was talking I believe that he has a capacity to be able to make the decision and he was encouraged to stay in the hospital until the doctor feels that he is ready to go. The patient denied any active auditory or visual hallucinations. Denied any suicidal ideation, intentions or plan at this time. BACKGROUND HISTORY The patient was born in [place]. He has three brothers and three sisters. His parents have but he was very close to them. His childhood was described as happy. He denied any physical, verbal or sexual abuse growing up. He did finish high school and two years of college and after then he joined the [employer] and had served for four years and received honorable discharge, and got the detention because of his bipolar disorder and has been taking Seroquel and seeing the outpatient psychiatrist. The patient denied any history of alcohol abuse. The patient denies any family history of emotional difficulty or suicide attempt or bipolar disorder at this time. MENTAL STATUS EXAMINATION This is a 61-year-old white male who looks about the same as his stated age. He was alert, oriented x2, cooperative but getting easily agitated and upset and wanting to go home, but after a discussion he was able to calm down and seemed like he would stay but very unpredictable. His speech was clear without any evidence of loose associations or flights of ideas at this time. His mood was getting easily agitated. His affect was restricted. He denied any active and/or passive suicidal and/or homicidal ideation, intentions or plan. He denied any active auditory or visual hallucinations or any paranoia. He seems to be of low average intelligence with poor memory for recent events. His insight is fair and his judgment seems to be okay on hypothetical situation. IMPRESSION History of bipolar affective disorder. RECOMMENDATIONS To answer your question regarding his capacity, in my opinion at this time based on this interview I believe that he does have capacity. I hope he will stay until the doctors feel he is ready to go, otherwise he might come back again once he goes to [facility]. I see that at home he has been on Seroquel. We might give him that to calm him down or we can call the [facility] to find out what dosage he was taking and then resume that while he is also getting some medical help. If there is anything more I can assist you with, please do not hesitate to call upon me and I thank you for allowing me to participate in the care of this patient. Henrik BELTRÁN /3:57 PM /5:50 PM
[2016-08-25] MEDS ORDERED: QUEtiapine FUMARATE 100 MG TAB PO SCH (21:00)
[2016-08-25] MEDS: lamoTRIgine 25 MG TAB PO SCH (22:33)
[2016-08-25] MEDS: AMOXICILLIN/CLAVULANATE K 875 MG TAB PO SCH (22:33)
[2016-08-26] VITALS: BP 144/84; PULSE 85; RESP 17; TEMP 97.3; O2SAT 93
[2016-08-26 01:30] VITALS: PULSE 89
[2016-08-26 04:00] VITALS: BP 134/83; PULSE 79; RESP 17; TEMP 96.9; O2SAT 95
[2016-08-26] MEDS: INSULIN ASPART SUPPLEMENTAL SCALE SQ SCH ×2 (06:54→12:31)
[2016-08-26 08:00] VITALS: BP 141/78; PULSE 110; RESP 20; TEMP 98.2; O2SAT 97
[2016-08-26 08:15] LABS: AUTOMATED NEUTROPHIL # 9.9 TH/MM3 (1.8-7.7); BASOPHIL # 0.1 TH/MM3 (0-0.2); BASOPHIL % 0.7 % (0.0-2.0); EOSINOPHIL # 0.7 TH/MM3 (0-0.4); EOSINOPHIL % 5.4 % (0.0-4.0); HEMATOCRIT 34.3 % (39.0-51.0); HEMO FLAGS DIFF FINAL; LYMPH % 12.6 % (9.0-44.0); LYMPHOCYTE # 1.7 TH/MM3 (1.0-4.8); MEAN CELL VOLUME 86.6 FL (80.0-100.0); MEAN CORPUSCULAR HEMOGLOBIN 28.1 PG (27.0-34.0); MEAN CORPUSCULAR HGB CONC 32.5 % (32.0-36.0); MONO % 6.7 % (0.0-8.0); NEUT % 74.6 % (16.0-70.0); PLATELET COUNT 342 TH/MM3 (150-450); RED BLOOD COUNT 3.96 MIL/MM3 (4.50-5.90); RED CELL DISTRIBUTION WIDTH 14.3 % (11.6-17.2); WHITE BLOOD COUNT 13.3 TH/MM3 (4.0-11.0)
[2016-08-26 08:42] LABS: BICARBONATE 28.3 MEQ/L (21.0-32.0); POTASSIUM 4.2 MEQ/L (3.5-5.1)
[2016-08-26] MEDS: lamoTRIgine 25 MG TAB PO SCH (09:21)
[2016-08-26] MEDS: SODIUM CHLORIDE 0.9% FLUSH 5 ML FLUSH FLUSH SCH (09:22)
[2016-08-26] MEDS: AMOXICILLIN/CLAVULANATE K 875 MG TAB PO SCH (09:28)
[2016-08-26 09:44] LABS: HEMOGLOBIN A1a 1.4 %; HEMOGLOBIN Ao 78.2 %; HEMOGLOBIN LA1C 2.6 %; HEMOGLOBIN P3 5.2 %
[2016-08-26] MEDS ORDERED: AMOX875T2 PO (10:12)
--- NOTE | 2016-08-26 11:12 | HHI.DS ---
Discharge Summary Admission Date Aug 24, 2016 at 01:09 Discharge Date: Aug 26, 2016 Admitting Diagnosis altered mental status, sepsis, acute renal failure (1) Sepsis ICD Code: A41.9 Diagnosis: Principal (2) UTI (urinary tract infection) ICD Code: N39.0 Diagnosis: Secondary (3) Encephalopathy ICD Code: G93.40 (4) YISEL (acute kidney injury) ICD Code: N17.9 Diagnosis: Principal (5) Hyperkalemia ICD Code: E87.5 Diagnosis: Secondary Procedures Bhatia catheter placement Brief History - From Admission This is a 61-year-old male with PMH of HTN, CAD, DM and Bipolar Disorder was brought to the ER by EMS for altered mental status after fall. Per report, patient had witnessed fall from motorized scooter at [facility], no reported LOC or seizure activity. Upon EMS arrival, patient was noted to be lethargic, BS 189, some improvement in mentation at which time pt reported he had taken Seroquel prior to fall. Denies fever, chills, chest pain or SOB. Pt remains somewhat lethargic, but answering questions. On arrival, BP 123/73, HR 88, O2 sat 98% on RA, Afebrile. Creatinine 3.08, previously 0.70 on 07/09/13. K+ 5.5 s/p Insulin/D50 and Kayexalate in ER. U/a positive for UTI. S/p Blood Cultures , Vanc/Zosyn in ER. CBC/BMP: 08/26/16 0715 08/26/16 0715 Significant Findings Laboratory Tests Test 08/23/16 08/24/16 08/24/16 08/24/16 22:35 01:45 05:20 15:25 Sodium Level 133 MEQ/L 135 MEQ/L 133 MEQ/L (136-145) (136-145) (136-145) Potassium Level 5.5 MEQ/L 5.7 MEQ/L 5.7 MEQ/L (3.5-5.1) (3.5-5.1) (3.5-5.1) Blood Urea Nitrogen 71 MG/DL (7-18) 67 MG/DL (7-18) 63 MG/DL (7-18) Creatinine 3.08 MG/DL 3.00 MG/DL 2.90 MG/DL (0.60-1.30) (0.60-1.30) (0.60-1.30) Estimat Glomerular Filtration 21 ML/MIN (>89) 21 ML/MIN (>89) 22 ML/MIN (>89) Rate Random Glucose 201 MG/DL 234 MG/DL 440 MG/DL (74-106) (74-106) (74-106) Calcium Level 8.3 MG/DL 8.4 MG/DL (8.5-10.1) (8.5-10.1) Aspartate Amino Transf 41 U/L (15-37) (AST/SGOT) Alanine Aminotransferase 88 U/L (12-78) 83 U/L (12-78) (ALT/SGPT) Alkaline Phosphatase 137 U/L 145 U/L (45-117) (45-117) Troponin I LESS THAN 0.02 NG/ML (0.02-0.05) Albumin 1.9 GM/DL 1.8 GM/DL (3.4-5.0) (3.4-5.0) White Blood Count 13.5 TH/MM3 12.7 TH/MM3 (4.0-11.0) (4.0-11.0) Red Blood Count 3.54 MIL/MM3 3.89 MIL/MM3 (4.50-5.90) (4.50-5.90) Hemoglobin 10.1 GM/DL 11.1 GM/DL (13.0-17.0) (13.0-17.0) Hematocrit 30.1 % 33.6 % (39.0-51.0) (39.0-51.0) Neutrophils (%) (Auto) 77.8 % 74.6 % (16.0-70.0) (16.0-70.0) Lymphocytes (%) (Auto) 8.1 % (9.0-44.0) Monocytes (%) (Auto) 10.4 % 11.0 % (0.0-8.0) (0.0-8.0) Neutrophils # (Auto) 10.5 TH/MM3 9.5 TH/MM3 (1.8-7.7) (1.8-7.7) Monocytes # (Auto) 1.4 TH/MM3 1.4 TH/MM3 (0-0.9) (0-0.9) Urine Turbidity HAZY (CLEAR) Urine Occult Blood TRACE (NEG) Urine Leukocyte Esterase LARGE (NEG) Urine RBC 9 /hpf (0-3) Urine WBC 154 /hpf (0-5) Urine WBC Clumps FEW (NONE) Urine Bacteria RARE /hpf (NONE) Urine Yeast (Budding) FEW (NONE) Urine Random Total Protein 31 MG/DL (0-11.8) Urine Protein/Creatinine Ratio 0.72 (0.00-0.14) Eosinophils (%) (Auto) 4.1 % (0.0-4.0) Eosinophils # (Auto) 0.5 TH/MM3 (0-0.4) Carbon Dioxide Level 20.4 MEQ/L (21.0-32.0) Test 08/25/16 08/26/16 08:25 07:15 White Blood Count 14.8 TH/MM3 13.3 TH/MM3 (4.0-11.0) (4.0-11.0) Red Blood Count 3.84 MIL/MM3 3.96 MIL/MM3 (4.50-5.90) (4.50-5.90) Hemoglobin 10.8 GM/DL 11.1 GM/DL (13.0-17.0) (13.0-17.0) Hematocrit 32.7 % 34.3 % (39.0-51.0) (39.0-51.0) Neutrophils (%) (Auto) 77.4 % 74.6 % (16.0-70.0) (16.0-70.0) Eosinophils (%) (Auto) 4.7 % (0.0-4.0) 5.4 % (0.0-4.0) Neutrophils # (Auto) 11.5 TH/MM3 9.9 TH/MM3 (1.8-7.7) (1.8-7.7) Monocytes # (Auto) 1.0 TH/MM3 (0-0.9) Eosinophils # (Auto) 0.7 TH/MM3 0.7 TH/MM3 (0-0.4) (0-0.4) Potassium Level 5.2 MEQ/L (3.5-5.1) Chloride Level 111 MEQ/L (98-107) Blood Urea Nitrogen 35 MG/DL (7-18) 20 MG/DL (7-18) Creatinine 1.64 MG/DL (0.60-1.30) Estimat Glomerular Filtration 43 ML/MIN (>89) 57 ML/MIN (>89) Rate Random Glucose 176 MG/DL 142 MG/DL (74-106) (74-106) Calcium Level 8.1 MG/DL (8.5-10.1) PE at Discharge Vital signs stable Complete exam not done because patient is belligerent Urine output is good next time patient refused to be examined Obviously awake, alert, moves extremities. Mildly agitated, no apparent hallucinations. Pt update on day of discharge No overnight events, no abdominal pain, nausea or vomiting. Afebrile. Hospital Course This is a 61-year-old male presenting with altered mental status and a fall. Patient was found to have sepsis secondary to UTI and acute renal failure. Patient had leukocytosis, tachycardia and positive urinalysis. Patient was started on empiric antibiotics. Urine culture grew gram-positive mixed leo, antibiotics were switched to Augmentin. Patient's blood culture remained negative. He was finish his course of Augmentin. Patient was also found to be in acute renal failure, kidney ultrasound revealed mild hydronephrosis and distended bladder, Bhatia catheter was inserted. Urology was consulted, recommendation is to follow-up as outpatient for workup and discharged on Bhatia catheter. Hypokalemia resolved with volume resuscitation, acute renal failure also resolved with volume resuscitation and insertion of Bhatia catheter. Patient will be discharged with Bhatia catheter to follow-up with urology in one week. Pt Condition on Discharge: Good Discharge Disposition: Discharge Home Discharge Time: > 30 minutes Discharge Instructions DIET: Follow Instructions for: Heart Healthy Diet, Diabetic Diet Activities you can perform: Regular-No Restrictions Follow up Referrals: Urology - 1 Week New Medications: Amoxicillin-Clavulanate (Amoxicillin-Clavulanate) 875-125 mg Tab 875 MG PO Q12HR uti #10 TAB Continued Medications: Aspirin (Aspirin) 81 Mg Chew 81 MG CHEW DAILY Ref 0 TAB Cholecalciferol (Vitamin D3) 2,000 Unit Chew 2000 UNITS CHEW DAILY #1 BOTTLE Doxazosin (Doxazosin) 2 Mg Tab 2 MG PO DAILY #30 Ref 0 TAB Fexofenadine ([place] Allergy) 180 Mg Tab 180 MG PO DAILY Allergy Management #30 Ref 0 TAB Insulin Aspart Protam-Asp 70-30 Inj (Novolog Mix 70-30 Inj) 1,000 Unit/10 Ml Vial 1 UNITS SQ Blood Sugar Management #10 Ref 0 ML Insulin Detemir Inj (Levemir Inj) 1,000 unit/ 10 ML Vial 12 UNITS SQ BID Do not mix with any other Insulin. Blood Sugar Management Ref 0 VIAL Insulin Human Regular Inj (Novolin R Inj) 1,000 Unit/10 Ml Vial 0 SQ DIRECTED Sliding Scale As Directed. Blood Sugar Management #10 Ref 0 ML Lamotrigine (Lamictal) 25 Mg Tab 25 MG PO BID Control Seizures #60 Ref 3 TAB Lisinopril (Lisinopril) 2.5 Mg Tab 2.5 MG PO DAILY #30 Ref 0 TAB Pioglitazone (Actos) 15 Mg Tab 15 MG PO DAILY Blood Sugar Management #30 Ref 0 TAB Quetiapine (Seroquel) 300 Mg Tab 300 MG PO HS #30 Ref 0 TAB Simvastatin (Simvastatin) 20 Mg Tab 20 MG PO HS Cholesterol Management #30 Ref 0 TAB Solifenacin (Vesicare) 5 Mg Tab 5 MG PO DAILY Urinary Symptom Managemen #30 Ref 0 TAB Yamilet Smart MD Aug 26, 2016 11:12
[2016-08-26] MEDS: SODIUM CHLOR 0.9% 1000 ML INJ 1,000 ML IV SCH (12:26)
== END 2016-08-26 15:01 | DRG 871 ==
LOC: NEPE 21:18 → NEDA 08-24 01:09 → NEDH 08-24 05:09 → HOCB 08-24 11:53 → HOCA 08-24 21:30
PROVIDERS: ADMIT Hospitalist; ATTEND Hospitalist
PROC: 0T9B70Z Drainage of Bladder with Drainage Device, Via Natural or Artificial Opening (ICD-10-PCS; principal; 2016-08-24)
DX: A41.9 Sepsis, unspecified organism (principal); G93.40 Encephalopathy, unspecified; N17.9 Acute kidney failure, unspecified; E11.649 Type 2 diabetes mellitus with hypoglycemia without coma; N39.0 Urinary tract infection, site not specified; N13.30 Unspecified hydronephrosis; E87.5 Hyperkalemia; R55 Syncope and collapse; E86.0 Dehydration; Z79.4 Long term (current) use of insulin; F17.210 Nicotine dependence, cigarettes, uncomplicated; I10 Essential (primary) hypertension; F31.9 Bipolar disorder, unspecified; E78.00 Pure hypercholesterolemia, unspecified; I25.10 Atherosclerotic heart disease of native coronary artery without angina pectoris; M79.652 Pain in left thigh; R33.9 Retention of urine, unspecified
CPT/HCPCS: 70450; 71010; 73552; 76775; 80048; 80053; 80307; 81001; 82550; 82570; 82948; 83036; 83605; 83735; 84156; 84484; 85025; 87040; 87086; 93005; 96374; 96375; J0610; J1815; J2543; J3370; J7030; J7050